=== PATIENT | female | born 1985 | race Caucasian/White ===

== ENCOUNTER 2024-07-25 15:59 | Emergency (ER) | payer BC | END 2024-07-25 17:27 | disposition left against medical advice (07) | LOC: ER 16:03 | DX: J02.9 Acute pharyngitis, unspecified (principal); M54.9 Dorsalgia, unspecified; Z53.21 Procedure and treatment not carried out due to patient leaving prior to being seen by health care provider ==

== ENCOUNTER 2024-09-09 11:25 | Emergency (ER) | payer BC, OTHER ==
[~2024-09-09] VITALS: Ht 160 cm; Wt 102.1 kg
[2024-09-09 11:32] VITALS: BP 133/71; TEMP 98.9; O2SAT 98
[2024-09-09] MEDS ORDERED: SULF1TAB48 PO (11:41)
== END 2024-09-09 11:45 | disposition home or self-care (01) ==
LOC: ER 11:39
DX: L03.012 Cellulitis of left finger (principal); Z90.49 Acquired absence of other specified parts of digestive tract